=== PATIENT | female | born 1985 | race Two or more races ===

== ENCOUNTER 2022-07-24 06:00 | Day surgery (SDC) | payer OTHER ==
[~2022-07-24 06:00] MED LIST: ACID REDUCER20 M1 PO; ADDERALL 10 MG10 MG PO; APETIGEN-PLUS1 EACH PO
== END 2022-07-24 17:15 | disposition home or self-care (01) ==
LOC: CIR.AMB 06:00
PROVIDERS: ATTEND Obstetrics & Gynecology Gynecology
DX: N93.9 Abnormal uterine and vaginal bleeding, unspecified (principal); N84.0 Polyp of corpus uteri; Z86.16 Personal history of COVID-19; F12.90 Cannabis use, unspecified, uncomplicated; Z20.822 Contact with and (suspected) exposure to COVID-19

== ENCOUNTER 2024-12-08 05:33 | Day surgery (SDC) | payer OTHER ==
[2024-12-03 11:30] VITALS: BP 107/76
[~2024-12-08] VITALS: Ht 165.1 cm; Wt 47.6 kg
[~2024-12-08 05:33] MED LIST changes: +PROAIR RESPICL90 MCG; +SYMBICORT 16010.2 GM; +ZYRTEC10 M3 PO
[2024-12-08] MEDS ORDERED: LIDOCAINE HCL 1%/EPINEPHRINE 20ML VIAL IJ ONE (07:10)
[2024-12-08] MEDS ORDERED: BUPIVACAINE HCL/MPF 0.5% 30ML VIAL ONE (07:10)
[2024-12-08] MEDS ORDERED: ENOXAPARIN SODIUM 40 MG/0.4 ML SYRINGE SUBCUTANEO ONE (07:10)
[2024-12-08] MEDS ORDERED: CEFTRIAXONE SODIUM 2,000 MG VIAL ONE (07:11)
[2024-12-08] MEDS ORDERED: METRONIDAZOLE/SODIUM CHLORIDE 500 MG/100 ML PIGGYBACK IV ONE (07:11)
[2024-12-08] MEDS ORDERED: SUGAMMADEX SODIUM 200 MG/2 ML VIAL IV ONE (09:18)
[2024-12-08] MEDS ORDERED: ALBUTEROL SULFATE 3 ML/2.5 MG AMPUL.NEB IH ONE (10:10)
[2024-12-08] MEDS ORDERED: POLY119PG PO (10:57)
[2024-12-08] MEDS ORDERED: NEURONTIN300 MG PO (10:57)
[2024-12-08] MEDS ORDERED: CELEBREX200MG PO (10:57)
[2024-12-08] MEDS ORDERED: PERCOCET 5-3251 EACH PO (10:57)
[2024-12-09] MEDS ORDERED: PEPCID40 MG PO (07:59)
[2024-12-09] MEDS ORDERED: ZOFRAN8 MG PO (07:59)
== END 2024-12-08 14:55 | disposition home or self-care (01) ==
LOC: CIR.AMB 05:33
PROVIDERS: ATTEND Surgery
DX: K40.20 Bilateral inguinal hernia, without obstruction or gangrene, not specified as recurrent (principal)
CPT/HCPCS: 49650; C1781

== ENCOUNTER 2024-12-08 21:59 | Emergency (ER) | payer OTHER ==
[~2024-12-08] VITALS: Ht 165.1 cm; Wt 47.6 kg
[~2024-12-08 21:59] MED LIST changes: +CELEBREX200MG PO; +NEURONTIN300 MG PO; +PERCOCET 5-3251 EACH PO; +POLY119PG PO
[2024-12-09] MEDS ORDERED: PROMETHAZINE HCL 50 MG/ML AMPUL IM STA (00:46)
[2024-12-09] MEDS ORDERED: FAMOTIDINE/PF 20 MG/2 ML VIAL IV PUSH STA (00:47)
[2024-12-09] MEDS ORDERED: 0.9 % SODIUM CHLORIDE 1,000 ML IV ONE (01:00)
[2024-12-09 02:16] LABS: BASO % 0.4 % (0.1-1.2); EOS # 0.05 (0.04-0.54); EOS % 0.5 % (0.7-7.0); HEMATOCRIT 37.6 % (34.1-44.9); HEMOGLOBIN 12.8 g/dL (11.2-15.7); LYMPH # 0.85 (1.18-3.74); LYMPH % 8.1 % (19.3-53.1); MEAN CORPUSCULAR HEMOGLOBIN 32.1 pg (25.6-32.2); MONO # 1.19 (0.24-0.82); MONO % 11.4 % (4.7-12.5); NEUT % 79.3 % (34.0-71.1); PLATELET COUNT 181 K/uL (163-369); RED BLOOD COUNT 3.99 M/uL (3.93-5.22); RED CELL DISTRIBUTION WIDTH 13.7 % (11.6-14.4)
[2024-12-09 02:18] LABS: PH,URINE 7.5 (5.0-8.0); URINE APPEARANCE Clear; URINE BILIRRUBIN Negative (NEGATIVE); URINE BLOOD Large; URINE COLOR Yellow; URINE GLUCOSE Negative (NEGATIVE); URINE LEUKOCYTE Small; URINE NITRATE Negative; URINE PROTEIN Negative (NEGATIVE); URINE UROBILINOGEN 0.2 E.U./dl
[2024-12-09] MEDS ORDERED: PROMETHAZINE HCL 50 MG/ML AMPUL IM ONE (02:19)
[2024-12-09] MEDS ORDERED: FAMOTIDINE/PF 20 MG/2 ML VIAL ONE (02:20)
[2024-12-09 02:22] LABS: URINE BACTERIA 18.3 uL (0.0-1933); URINE EPITHELIAL CELLS 39.2 uL (0.0-38.8); URINE RBC 194.4 uL (0.0-20.8); URINE WBC 37.9 uL (0.0-23.2)
[2024-12-09] MEDS ORDERED: KETOROLAC TROMETHAMINE 30 MG VIAL ONE ×2 (02:27→05:45)
[2024-12-09 02:33] LABS: URINE CAST 0.44 uL (0.0-1.40); URINE KETONE 40 (NEGATIVE)
[2024-12-09 02:44] LABS: INR 1.03; PARTIAL THROMBOPLASTIN TIME 26.7 SECONDS (22.0-34.0); PROTHROMBIN TIME 11.2 SECONDS (9.0-11.5)
[2024-12-09] MEDS ORDERED: KETOROLAC TROMETHAMINE 30 MG VIAL IV ONE (02:45)
[2024-12-09 02:50] LABS: ALBUMIN 3.5 gm/dL (3.4-5.0); ALKALINE PHOSPHATASE 45 U/L (50-136); ALT/SGPT 19 U/L (12-78); AMYLASE 36 U/L (25-115); ANION GAP 8 (10.0-20.0); AST/SGOT 16 U/L (15-37); BILIRUBIN TOTAL 1.29 mg/dL (0.3-1.2); BLOOD UREA NITROGEN 8 mg/dL (7-18); BUN CREA RATIO 15 (7.0-25.0); CALCIUM 8.2 mg/dL (8.5-10.1); CARBON DIOXIDE 27 mEq/L (21-32); CHLORIDE 107 mmol/L (98-107); CREATININE SERUM 0.55 mg/dL (0.55-1.02); GFR 124.37; GLOBULINA 3.5 G/DL (2.4-3.5); GLUCOSE FASTING 100 mg/dL (65-100); LIPASE 22 U/L (13-75); OSMOLALITY SERUM 274 MOSM/KG (275-295); POTASSIUM 3.82 mEq/L (3.5-5.1); SODIUM 138 mmol/L (136-145)
[2024-12-09 03:18] LABS: HCG QUANTITATIVE < 1 mUI/mL (1-3)
[2024-12-09] MEDS ORDERED: KETOROLAC TROMETHAMINE 30 MG VIAL IV STA (05:47)
[2024-12-09] MEDS ORDERED: PEPCID40 MG PO (07:59)
[2024-12-09] MEDS ORDERED: ZOFRAN8 MG PO (07:59)
== END 2024-12-09 09:04 ==
LOC: ER 22:46
PROVIDERS: General Practice
DX: R11.10 Vomiting, unspecified (principal); E86.0 Dehydration

== ENCOUNTER 2025-03-16 10:19 | Emergency (ER) | payer OTHER ==
[~2025-03-16] VITALS: Ht 165.1 cm; Wt 49.9 kg
[~2025-03-16 10:19] MED LIST changes: +PEPCID40 MG PO; +ZOFRAN8 MG PO
[2025-03-16] MEDS ORDERED: PROAIR RESPICL90 MCG IH (10:35)
[2025-03-16] MEDS ORDERED: MONTELUKAST SODI4 M1 PO (10:35)
[2025-03-16 10:36] VITALS: BP 130/90; O2SAT 98
[2025-03-16] MEDS ORDERED: KETOROLAC TROMETHAMINE 30 MG VIAL IV ONE (11:00)
[2025-03-16] MEDS ORDERED: 0.9 % SODIUM CHLORIDE 1,000 ML IV ONE (11:00)
[2025-03-16 11:52] LABS: BASO % 0.6 % (0.1-1.2); EOS # 0.14 (0.04-0.54); EOS % 1.6 % (0.7-7.0); LYMPH # 1.30 (1.18-3.74); LYMPH % 14.7 % (19.3-53.1); MEAN PLATELET VOLUME 11.10 fl (9.4-12.4); MONO # 0.82 (0.24-0.82); MONO % 9.2 % (4.7-12.5); NEUT # 6.54 (1.56-6.13); NEUT % 73.7 % (34.0-71.1); RED CELL DISTRIBUTION WIDTH 12.7 % (11.6-14.4)
[2025-03-16 12:18] LABS: URINE APPEARANCE Clear; URINE BILIRRUBIN Negative (NEGATIVE); URINE BLOOD Moderate; URINE COLOR Yellow; URINE GLUCOSE Negative (NEGATIVE); URINE KETONE Negative (NEGATIVE); URINE LEUKOCYTE Small; URINE NITRATE Negative; URINE PROTEIN Negative (NEGATIVE); URINE UROBILINOGEN 0.2 E.U./dl
[2025-03-16 12:22] LABS: URINE BACTERIA 2589.4 uL (0.0-1933); URINE EPITHELIAL CELLS 10.9 uL (0.0-38.8); URINE RBC 6.1 uL (0.0-20.8); URINE WBC 110.2 uL (0.0-23.2)
[2025-03-16 12:27] LABS: URINE CAST 0.00 uL (0.0-1.40)
[2025-03-16 12:31] LABS: ALT/SGPT 24 U/L (12-78); AST/SGOT 16 U/L (15-37); BILIRUBIN TOTAL 0.56 mg/dL (0.3-1.2); BUN CREA RATIO 21 (7.0-25.0); CREATININE SERUM 0.66 mg/dL (0.55-1.02); GFR 100.23; GLOBULINA 3.9 G/DL (2.4-3.5); GLUCOSE FASTING 84 mg/dL (65-100); OSMOLALITY SERUM 277 MOSM/KG (275-295)
[2025-03-16 12:36] LABS: HCG QUANTITATIVE < 1 mUI/mL (1-3)
[2025-03-16] MEDS ORDERED: NORFLEX100MG PO (15:54)
== END 2025-03-16 15:59 | disposition home or self-care (01) ==
LOC: ER 10:19
PROVIDERS: General Practice
DX: R10.2 Pelvic and perineal pain (principal); E03.9 Hypothyroidism, unspecified; Z87.09 Personal history of other diseases of the respiratory system; N83.202 Unspecified ovarian cyst, left side; N83.201 Unspecified ovarian cyst, right side; N28.1 Cyst of kidney, acquired